=== PATIENT | female | born 1980 | race Asian ===

== ENCOUNTER 2016-06-26 20:01 | Emergency (ER) | payer OTHER ==
[~2016-06-26] VITALS: Ht 149.9 cm; Wt 65.0 kg
[2016-06-26 20:06] VITALS: BP 115/83; TEMP 99
[2016-06-26] MEDS ORDERED: FLEXERIL 1010 MG/TAB PO (22:02)
[2016-06-26 22:11] VITALS: PULSE 83
== END 2016-06-26 22:12 | disposition home or self-care (01) ==
LOC: COL.ER 20:01
DX: G44.209 Tension-type headache, unspecified, not intractable (principal)
CPT/HCPCS: J1200; J1885

== ENCOUNTER 2017-02-26 20:47 | Emergency (ER) | payer OTHER ==
[~2017-02-26] VITALS: Ht 149.9 cm; Wt 60.0 kg
[~2017-02-26 20:47] MED LIST: FLEXERIL 1010 MG/TAB PO
[2017-02-26 21:05] VITALS: TEMP 98.8
[2017-02-26 22:03] LABS: BASO # 0.1 (0.0-0.2); BASO % 0.4 % (0.0-2.0); EOS # 0.1 (0.0-0.7); EOS % 0.5 % (0-4.0); GRAN # 8.7 (1.4-6.5); HEMOGLOBIN 13.9 g/dl (12.5-16.0); LYMPH # 2.5 (1.2-3.4); LYMPH % 20.5 % (20.0-51.0); MEAN CELL VOLUME 89 fl (80.0-100.0); MEAN CORPUSCULAR HEMOGLOBIN 30 pg (27.0-31.0); MEAN CORPUSCULAR HGB CONC 33 g/dl (33.0-37.0); MEAN PLATELET VOLUME 9.6 fl (7.4-10.4); MONO % 8.1 % (1.7-9.3); PLATELET COUNT 358 K/mm3 (130-400); RED BLOOD COUNT 4.71 M/mm3 (4.10-5.30); REDCELL DISTRIBUTION WIDTH-CV 12.8 % (11.5-14.5); WHITE BLOOD COUNT 12.4 K/mm3 (4.8-10.8)
[2017-02-26 22:13] LABS: PH 8 (5-8); URINE APPEARANCE Hazy; URINE BACTERIA Rare /hpf; URINE BILIRUBIN Negative (NEGATIVE); URINE BLOOD 1+ (NEGATIVE); URINE COLOR Yellow; URINE GLUCOSE Negative (NEGATIVE); URINE KETONE Negative (NEGATIVE); URINE WBC 0-2 /hpf
[2017-02-26 22:18] LABS: CALCIUM 9.2 mg/dL (8.4-10.2); CREATININE, serum 0.71 mg/dL (0.52-1.25); POTASSIUM 3.8 mmol/L (3.4-5.0)
[2017-02-26] MEDS ORDERED: MACROBID 1100 MG/CAP PO (22:40)
[2017-02-27 00:22] VITALS: BP 136/84; PULSE 98
== END 2017-02-27 00:23 | disposition home or self-care (01) ==
LOC: COL.ER 20:47
PROVIDERS: Physician Assistant
DX: G44.209 Tension-type headache, unspecified, not intractable (principal); M62.838 Other muscle spasm; R11.0 Nausea; R82.71 Bacteriuria
CPT/HCPCS: J1885; J2060; J2550; J7030

== ENCOUNTER 2017-03-11 21:46 | Emergency (ER) | payer OTHER ==
[~2017-03-11] VITALS: Ht 149.9 cm; Wt 63.6 kg
[~2017-03-11 21:46] MED LIST changes: +MACROBID 1100 MG/CAP PO
[2017-03-11 21:49] VITALS: BP 121/64; TEMP 98.4
[2017-03-11 22:54] VITALS: PULSE 97
== END 2017-03-11 22:56 | disposition home or self-care (01) ==
LOC: COL.ER 21:46
DX: J03.90 Acute tonsillitis, unspecified (principal); Z98.890 Other specified postprocedural states

== ENCOUNTER 2017-04-20 14:15 | Outpatient (RCR) | payer OTHER | END 2017-05-03 14:38 | disposition home or self-care (01) | LOC: WSOT 14:15 | DX: G56.03 Carpal tunnel syndrome, bilateral upper limbs (principal) | CPT/HCPCS: 24091; A6549 ==

== ENCOUNTER 2017-09-09 18:29 | Emergency (ER) | payer OTHER ==
[~2017-09-09] VITALS: Ht 149.9 cm; Wt 64.1 kg
[2017-09-09 18:42] VITALS: BP 132/70; TEMP 99.2
[2017-09-09 19:03] LABS: COLLECTION METHOD CLEAN CATCH
[2017-09-09 19:07] LABS: BASO % 0.3 % (0.0-2.0); GRAN # 2.5 (1.4-6.5); GRAN % 67.9 % (42.2-75.2); HEMATOCRIT 39.8 % (37.0-47.0); HEMOGLOBIN 13.4 g/dl (12.5-16.0); LYMPH # 0.7 (1.2-3.4); LYMPH % 19.4 % (20.0-51.0); MEAN CELL VOLUME 85 fl (80.0-100.0); MEAN CORPUSCULAR HEMOGLOBIN 29 pg (27.0-31.0); MEAN CORPUSCULAR HGB CONC 34 g/dl (33.0-37.0); MEAN PLATELET VOLUME 9.5 fl (7.4-10.4); MONO # 0.4 (0.1-0.6); MONO % 11.1 % (1.7-9.3); PLATELET COUNT 183 K/mm3 (130-400); RED BLOOD COUNT 4.67 M/mm3 (4.10-5.30); REDCELL DISTRIBUTION WIDTH-CV 13.4 % (11.5-14.5)
[2017-09-09 19:15] LABS: PH 6 (5-8); SQUAMOUS EPITHELIAL 0-2 /hpf; URINE APPEARANCE Clear; URINE BACTERIA Rare /hpf; URINE BILIRUBIN Negative (NEGATIVE); URINE BLOOD 2+ (NEGATIVE); URINE COLOR Straw; URINE GLUCOSE Negative (NEGATIVE); URINE KETONE Negative (NEGATIVE); URINE LEUKOCYTE ESTERASE Negative (NEGATIVE); URINE NITRATE Negative (NEGATIVE); URINE PROTEIN(semi-quant) Negative (NEGATIVE); URINE UROBILINOGEN Negative (NEGATIVE)
[2017-09-09 19:23] LABS: BILIRUBIN,TOTAL 0.2 mg/dL (0.0-1.0); C-REACTIVE PROTEIN 3.4 mg/dL (0.0-0.9); CALCIUM 8.7 mg/dL (8.4-10.2); CREATININE, serum 0.47 mg/dL (0.52-1.25); POTASSIUM 3.4 mmol/L (3.4-5.0); TOTAL PROTEIN 8.1 gm/dL (6.4-8.2)
[2017-09-09] MEDS ORDERED: ZOFRAN ODT4 MG PO (19:34)
[2017-09-09 20:20] VITALS: PULSE 112
== END 2017-09-09 20:15 | disposition home or self-care (01) ==
LOC: COL.ER 18:29
PROVIDERS: Family Medicine
DX: K52.9 Noninfective gastroenteritis and colitis, unspecified (principal); R51 Headache
CPT/HCPCS: J1885; J2550; J7030

== ENCOUNTER 2017-12-25 22:21 | Emergency (ER) | payer OTHER ==
[~2017-12-25] VITALS: Ht 149.9 cm; Wt 67.3 kg
[~2017-12-25 22:21] MED LIST changes: +ZOFRAN ODT4 MG PO
[2017-12-25 22:27] VITALS: BP 113/77; TEMP 97.4
[2017-12-26 00:15] VITALS: PULSE 92
== END 2017-12-26 00:15 | disposition home or self-care (01) ==
LOC: COL.ER 22:21
DX: O9A.212 Injury, poisoning and certain other consequences of external causes complicating pregnancy, second trimester (principal); S80.02XA Contusion of left knee, initial encounter; Z98.890 Other specified postprocedural states; Z3A.19 19 weeks gestation of pregnancy; V49.9XXA Car occupant (driver) (passenger) injured in unspecified traffic accident, initial encounter; Y92.410 Unspecified street and highway as the place of occurrence of the external cause

== ENCOUNTER 2018-01-28 23:39 | Emergency (ER) | payer OTHER ==
[~2018-01-28] VITALS: Ht 149.9 cm; Wt 68.2 kg
[2018-01-28 23:43] VITALS: BP 114/71; TEMP 97.1
[2018-01-29] MEDS ORDERED: PRENATAL MVI PO (00:25)
[2018-01-29 00:44] LABS: COLLECTION METHOD CLEAN CATCH
[2018-01-29 00:50] LABS: MUCOUS Present /lpf; PH 5 (5-8); URINE APPEARANCE Hazy; URINE BACTERIA Rare /hpf; URINE BILIRUBIN Negative (NEGATIVE); URINE BLOOD 1+ (NEGATIVE); URINE COLOR Yellow; URINE GLUCOSE Negative (NEGATIVE); URINE KETONE 1+ (NEGATIVE); URINE LEUKOCYTE ESTERASE Negative (NEGATIVE); URINE NITRATE Negative (NEGATIVE); URINE PROTEIN(semi-quant) 1+ (NEGATIVE)
[2018-01-29] MEDS ORDERED: FLEXERIL 1010 MG/TAB PO (01:18)
[2018-01-29 01:24] VITALS: PULSE 98
== END 2018-01-29 01:23 | disposition home or self-care (01) ==
LOC: COL.ER 23:39
PROVIDERS: Nurse Practitioner
DX: M54.32 Sciatica, left side (principal)

== ENCOUNTER → 2018-03-15 | Outpatient (CLI) | payer OTHER ==
[~2018-03-15] MED LIST changes: +PRENATAL MVI PO
== END ==
LOC: SUN.DIA 14:01
DX: O24.419 Gestational diabetes mellitus in pregnancy, unspecified control (principal); Z3A.30 30 weeks gestation of pregnancy
CPT/HCPCS: G0108

== ENCOUNTER → 2018-06-02 | Outpatient (CLI) | payer OTHER ==
[~2018-06-02] MED LIST changes: +ADVIL200 MG PO; +IBU600 MG PO; +NATURAL IRON65 MG PO; +ONE DAILY1 TA1 PO; +PERCOCET 325 MG1 TA2 PO
== END ==
LOC: COL.RAD 09:00
DX: N28.89 Other specified disorders of kidney and ureter (principal)
CPT/HCPCS: Q9967

== ENCOUNTER 2018-06-03 08:08 | Day surgery (SDC) | payer OTHER ==
[~2018-06-03] VITALS: Ht 149.9 cm; Wt 66.3 kg
[~2018-06-03 08:08] MED LIST changes: -ADVIL200 MG PO; -NATURAL IRON65 MG PO
[2018-06-03] MEDS ORDERED: ADVIL200 MG PO (08:51)
[2018-06-03 08:52] VITALS: BP 124/73; PULSE 86; TEMP 98.1
[2018-06-03] MEDS ORDERED: NATURAL IRON65 MG PO (08:52)
--- NOTE | 2018-06-03 09:53 | NUR ---
Patient is resting comfortably in room. Denies any needs at this time.
--- NOTE | 2018-06-03 10:23 | NUR ---
Report given to TEXTILE COATING MACHINE OPERATORHemalatha CARDOSO. Patient to OR at this time.
[2018-06-03 11:35] VITALS: BP 133/75; PULSE 69; TEMP 97.6
--- NOTE | 2018-06-03 11:35 | NUR ---
Patient arrives to [facility] [place] [facility] via cart, accompanied by PROJECT CONTROLS SCHEDULER Angel. She is alert and oriented. She denies any pain or nausea. Monitoring applied - VSS and WNL on room air. Family is to be called by the patient when she is ready to go. Patient denies any needs at this time. Will continue to monitor.
[2018-06-03 11:50] VITALS: BP 145/70; PULSE 64
--- NOTE | 2018-06-03 11:50 | NUR ---
Patient is resting comfortably. VSS and WNL on room air. Patient escorted to restroom where she voids clear yellow urine and then returns to room. Offered and receives water, crackers, and ice cream. Will continue to monitor.
[2018-06-03 12:05] VITALS: BP 100/82; PULSE 66
--- NOTE | 2018-06-03 12:05 | NUR ---
VSS and WNL on room air. Patient is resting comfortably. Denies any pain, nausea, or need.
--- NOTE | 2018-06-03 12:06 | NUR ---
Initial visit; Retort Engineer offered prayer and encouragement to patient prior to her surgical procedure. Patient thanked Retort Engineer for spiritual care.
--- NOTE | 2018-06-03 12:17 | NUR ---
Dr. Kulkarni at the bedside to talk with the patient at this time.
[2018-06-03 12:20] VITALS: BP 121/78; PULSE 78
--- NOTE | 2018-06-03 12:20 | NUR ---
VSS and WNL on room air. Patient is resting comfortably in room.
--- NOTE | 2018-06-03 12:22 | NUR ---
Verbal order with readback received from Dr. Kulkarni to discharge patient to home. Dr. Kulkarni will schedule patient for further surgery with scheduling. No follow-up appointment needed at this time, as she will be returning for surgery. No prescriptions ordered for patient either.
--- NOTE | 2018-06-03 12:45 | NUR ---
Patient has met discharge criteria. Discharge instructions discussed with valdonet, patient denies any questions, and verbalizes understanding. PIV removed with catheter intact and hemostasis achieved. Changes to clothing independently. Escorted to exit via wheelchair. Discharged to home with ride in private vehicle at 1245.
--- NOTE | 2018-06-03 12:45 | NUR ---
Patient scheduled to return for surgery tomorrow - arrive at 0600 to check-in at ED for surgery at 0800. Verbalizes understanding and instructions to not have anything to eat/drink after midnight.
== END 2018-06-03 12:45 | disposition home or self-care (01) ==
LOC: SDCO 08:08
DX: O99.89 Other specified diseases and conditions complicating pregnancy, childbirth and the puerperium (principal); N13.1 Hydronephrosis with ureteral stricture, not elsewhere classified
CPT/HCPCS: C1769; C2617; J0171; J0330; J1100; J1885; J2405; J2704; J3010; J7120; Q9967

== ENCOUNTER 2018-06-04 06:04 | Inpatient (IN) | payer OTHER ==
[2018-06-04] VITALS (13 sets, daily range): BP systolic 118–151; BP diastolic 61–89; PULSE 67–74; TEMP 97.5–98.4
[~2018-06-04] VITALS: Ht 149.9 cm; Wt 66.4 kg
[~2018-06-04 06:04] MED LIST changes: +ADVIL200 MG PO; +NATURAL IRON65 MG PO
--- NOTE | 2018-06-04 07:00 | NUR ---
Rests in bed, alert. Iv start to right inner wrist area. Iv fluids of lactated ringers started as ordered. Pepcid 20 mg iv given as ordered. 0718 Surgery nurse here, report given. To o.r. via bed, alert, stable.
--- NOTE | 2018-06-04 07:07 | NUR ---
0630 PT ARRIVES AMB TO UNIT AND TO ROOM BY VIDEO PRODUCTION ENGINEER. 0645 GOWN ON BILL PLAN OF CAR DISUCSSED WITH PT. 0700 IV STARTED AND FLUID INFUSING WELL. 0710 CONSENT SIGNED.
--- NOTE | 2018-06-04 10:20 | NUR ---
Back to room from o.r. Alert, stable. Denies any pain or discomfort at this time.
--- NOTE | 2018-06-04 10:35 | NUR ---
Rests in bed, alert. Warm blankets on per request.
--- NOTE | 2018-06-04 11:05 | NUR ---
Rests in bed, alert. Family at bedside. Denies any needs at this time.
--- NOTE | 2018-06-04 12:29 | NUR ---
Appeals Examiner prayed and offered support with patient while friend was in room.
--- NOTE | 2018-06-04 13:50 | NUR ---
Rests in bed, alert. Denies any needs at this time.
[2018-06-05 03:47] VITALS: BP 126/57; PULSE 66; TEMP 98.8
[2018-06-05 07:00] VITALS: BP 135/71; PULSE 66; TEMP 99.2
[2018-06-05 08:08] VITALS: TEMP 97.9
[2018-06-05 09:11] LABS: BASO % 0.2 % (0.0-2.0); EOS % 0.2 % (0-4.0); GRAN # 10.5 (1.4-6.5); LYMPH # 3.5 (1.2-3.4); LYMPH % 23.2 % (20.0-51.0); MEAN CELL VOLUME 87 fl (80.0-100.0); MEAN CORPUSCULAR HGB CONC 33 g/dl (33.0-37.0); MEAN PLATELET VOLUME 8.9 fl (7.4-10.4); MONO # 0.9 (0.1-0.6); PLATELET COUNT 599 K/mm3 (130-400); RED BLOOD COUNT 3.05 M/mm3 (4.10-5.30); REDCELL DISTRIBUTION WIDTH-CV 14.4 % (11.5-14.5)
[2018-06-05 09:16] LABS: HEMATOCRIT 26.5 % (37.0-47.0); HEMOGLOBIN 8.6 g/dl (12.5-16.0); MEAN CORPUSCULAR HEMOGLOBIN 28 pg (27.0-31.0)
[2018-06-05 11:19] VITALS: BP 119/61; PULSE 79; TEMP 97.9
--- NOTE | 2018-06-05 11:50 | NUR ---
REVIEWED DISCHARGE INSTRUCTIONS WITH PATIENT. INSTRUCTED TO FOLLOW UP WITH UROLOGY AND OBGYN. REVIEWED PAIN MANAGMENT AND SIGNS AND SYMPTOMS OF INFECTION. PATIENT DENIES QUESTIONS OR CONCERNS.
--- NOTE | 2018-06-05 12:07 | NUR ---
AMBULATORY OFF UNIT WITH SIGNIFICANT OTHER AND THIS RN.
== END 2018-06-05 12:07 | disposition home or self-care (01) | DRG 769 ==
LOC: OB 06:04 → SURG 08:00 → OB 06-05 12:07
PROVIDERS: Obstetrics & Gynecology; ADMIT Urology
PROC: 0TJB8ZZ Inspection of Bladder, Via Natural or Artificial Opening Endoscopic (ICD-10-PCS; 2018-06-04)
PROC: 0TN70ZZ Release Left Ureter, Open Approach (ICD-10-PCS; principal; 2018-06-04 08:00)
DX: O99.89 Other specified diseases and conditions complicating pregnancy, childbirth and the puerperium (principal); N13.1 Hydronephrosis with ureteral stricture, not elsewhere classified
CPT/HCPCS: A4314; J0690; J1100; J1170; J1885; J2405; J2704; J2710; J3010; J7120

== ENCOUNTER → 2018-07-29 | Outpatient (CLI) | payer OTHER | LOC: COL.RAD 08:51 | DX: R10.12 Left upper quadrant pain (principal) | CPT/HCPCS: Q9967 ==

== ENCOUNTER → 2018-10-05 | Outpatient (CLI) | payer OTHER | LOC: COL.RAD 08:17 | DX: N13.30 Unspecified hydronephrosis (principal) | CPT/HCPCS: Q9967 ==

== ENCOUNTER → 2019-04-12 | Outpatient (CLI) | payer OTHER | LOC: MC.RAD 13:24 | DX: Z12.31 Encounter for screening mammogram for malignant neoplasm of breast (principal) ==